=== PATIENT | male | born 2000 | race Caucasian/White ===

== ENCOUNTER 2019-04-08 22:58 | Emergency (ER) | payer MEDICAID ==
[~2019-04-08] VITALS: Ht 185.4 cm; Wt 104.3 kg
--- NOTE | 2019-04-08 23:27 | NUR ---
Patient discharged to home in stable conditon. Written and verbal after care instructions given. Patient verbalizes understanding of instructions. Patient ambulated with stable gait.
[2019-04-08 23:56] VITALS: BP 128/74
== END 2019-04-08 23:27 | disposition home or self-care (01) ==
LOC: ER 23:01
DX: J06.9 Acute upper respiratory infection, unspecified (principal); Z88.8 Allergy status to other drugs, medicaments and biological substances
CPT/HCPCS: A4663